=== PATIENT | female | born 1960 | race Caucasian/White ===

== ENCOUNTER 2021-06-08 06:15 | Observation (INO) ==
[2021-06-08] MEDS ORDERED: Ondansetron 4 MG/2 ML VIAL IVP ONE (09:10)
[2021-06-08] MEDS ORDERED: Ringers Solution, Lactated 1,000 ML IVC ONE ×2 (09:15→10:42)
[2021-06-08] MEDS ORDERED: Ketorolac 30 MG/ML VIAL IVP ONE (09:19)
[2021-06-08 10:00] LABS: Albumin 4.5 g/dL (3.5-5.7); Albumin/Globulin Ratio 1.7 (1.1-2.2); Basophils # 0.1 K/mcL (0.0-0.2); Basophils % 0.3 %; Bilirubin,Total 0.8 mg/dL (0.3-1.0); Calcium 10.6 mg/dL (8.6-10.3); Globulin 2.7 g/dL (2.4-3.5); Hematocrit 43.9 % (35.3-44.9); Hemoglobin 15.1 g/dL (11.5-15.4); Immature Granulocytes % 0.5 % (0-4); Lymphocytes # 1.4 K/mcL (0.6-4.6); Mean Corpuscular HGB Conc 34.4 g/dL (31.6-35.5); Mean Corpuscular Hemoglobin 29.6 pg (28.0-33.3); Mean Corpuscular Volume 86.1 fL (83.0-100.0); Mean Platelet Volume 10.4 fL (9.4-12.4); Monocytes % 6.7 %; Platelet Count 350 K/mcL (140-400); Potassium 3.3 mEq/L (3.5-5.1); Red Cell Distribution Width 13.2 % (11.5-14.5); Segmented Neutrophils % 83.5 %; Total Protein 7.2 g/dL (6.4-8.9); White Blood Count 15.5 K/mcL (4.3-11.1)
[2021-06-08] MEDS ORDERED: Potassium Effervescent 25 MEQ TABLET.EFF PO ONE (10:17)
[2021-06-08] MEDS ORDERED: Prochlorperazine 10 MG/2 ML VIAL IVP ONE (10:43)
[2021-06-08 10:50] LABS: Influenza A PCR Negative (Negative); Influenza B PCR Negative (Negative); Resp. Syncytial Virus PCR Negative (Negative); SARS-CoV-2 by PCR (In House) Negative (Negative)
[2021-06-08 11:19] LABS: Bilirubin,Urine Negative (Negative); Blood,Urine Small (Negative); Clarity,Urine Clear (Clear); Color,Urine Light-Yellow (Yellow); Glucose,Urine (UA) Normal (Normal); Ketones,Urine Negative (Negative); Leukocyte Esterase,Urine Negative (Negative); Mucus,Urine Few per lpf (None-Few); Nitrite,Urine Negative (Negative); PH,Urine 5.5 pH Units (5.0-8.0); Protein,Urine Negative (Neg-Trace); RBC,Urine 0-3 per hpf (0-3); Specific Gravity,Urine 1.017 (1.010-1.025); Squamous Epithelial Cell,Urine Few per hpf (None-Few); Urobilinogen,Urine Normal (Normal); WBC,Urine 0-3 per hpf (0-3)
[2021-06-08 14:25] LABS: Calcium 9.8 mg/dL (8.6-10.3); Potassium 3.7 mEq/L (3.5-5.1)
[2021-06-08] MEDS ORDERED: Naloxone 0.4 MG/ML INJ IVP PRN (16:46)
[2021-06-08] MEDS: cefTRIAXone 2,000 MG in 0.9 % Sodium Chloride 20 ML IVPB SCH (17:56)
[2021-06-08] MEDS: Azithromycin 500 MG in 0.9 % Sodium Chloride 250 ML IVPB SCH (17:56)
[2021-06-08] MEDS ORDERED: Acetaminophen 325 MG TABLET PO ONE (23:08)
[2021-06-09] MEDS ORDERED: Ibuprofen 600 MG TABLET PO ONE (03:24)
[2021-06-09 05:21] LABS: Basophils % 0.3 %; Eosinophils % 0.2 %; Hematocrit 36.2 % (35.3-44.9); Immature Granulocytes % 0.5 % (0-4); Lymphocytes # 1.6 K/mcL (0.6-4.6); Lymphocytes % 13.4 %; Mean Corpuscular Hemoglobin 29.6 pg (28.0-33.3); Mean Corpuscular Volume 87.2 fL (83.0-100.0); Mean Platelet Volume 10.4 fL (9.4-12.4); Monocytes # 0.8 K/mcL (0.0-1.3); Neutrophils # 9.5 K/mcL (1.6-8.9); Platelet Count 266 K/mcL (140-400); Red Blood Count 4.15 M/mcL (3.82-4.97); Red Cell Distribution Width 13.2 % (11.5-14.5); Segmented Neutrophils % 78.6 %; White Blood Count 12.1 K/mcL (4.3-11.1)
[2021-06-09 05:24] LABS: Hemoglobin 12.3 g/dL (11.5-15.4)
[2021-06-09] MEDS: *HR* Enoxaparin 40 MG/0.4 ML SYRINGE SQ SCH (05:29)
[2021-06-09 05:53] LABS: Calcium 9.2 mg/dL (8.6-10.3); Potassium 3.1 mEq/L (3.5-5.1)
[2021-06-09] MEDS: cefTRIAXone 2,000 MG in 0.9 % Sodium Chloride 20 ML IVPB SCH (07:23)
[2021-06-09] MEDS ORDERED: 0.9 % Sodium Chloride 1,000 ML IVC SCH (11:00)
[2021-06-09] MEDS ORDERED: Triamterene/HCTZ 75/50 mg TABLET PO SCH (12:00)
[2021-06-09] MEDS ORDERED: Metoprolol XL (24 HR) Succ 25 MG TAB.ER.24H PO SCH (12:00)
[2021-06-09] MEDS ORDERED: Ondansetron 4 MG/2 ML VIAL IVP PRN (15:08)
[2021-06-09] MEDS: Benzonatate 100 MG CAPSULE PO PRN (15:33)
[2021-06-09] MEDS: Azithromycin 500 MG in 0.9 % Sodium Chloride 250 ML IVPB SCH (17:02)
[2021-06-09] MEDS ORDERED: Acetaminophen 325 MG TABLET PO ONE (20:36)
[2021-06-10 01:39] LABS: Basophils # 0.1 K/mcL (0.0-0.2); Basophils % 0.5 %; Eosinophils # 0.1 K/mcL (0.0-0.6); Hematocrit 35.9 % (35.3-44.9); Hemoglobin 12.4 g/dL (11.5-15.4); Immature Granulocytes % 0.3 % (0-4); Lymphocytes # 2.3 K/mcL (0.6-4.6); Lymphocytes % 21.9 %; Mean Corpuscular HGB Conc 34.5 g/dL (31.6-35.5); Mean Corpuscular Hemoglobin 30.2 pg (28.0-33.3); Mean Corpuscular Volume 87.3 fL (83.0-100.0); Mean Platelet Volume 10.3 fL (9.4-12.4); Monocytes # 0.8 K/mcL (0.0-1.3); Monocytes % 7.9 %; Neutrophils # 7.1 K/mcL (1.6-8.9); Platelet Count 264 K/mcL (140-400); Red Blood Count 4.11 M/mcL (3.82-4.97); Segmented Neutrophils % 68.4 %; White Blood Count 10.3 K/mcL (4.3-11.1)
[2021-06-10 01:51] LABS: Calcium 9.6 mg/dL (8.6-10.3); Potassium 3.2 mEq/L (3.5-5.1)
[2021-06-10] MEDS ORDERED: Ibuprofen 600 MG TABLET PO ONE (04:43)
[2021-06-10] MEDS: *HR* Enoxaparin 40 MG/0.4 ML SYRINGE SQ SCH (04:50)
[2021-06-10] MEDS: Benzonatate 100 MG CAPSULE PO PRN (04:50)
[2021-06-10 07:56] VITALS: TEMP 98.3
[2021-06-10] MEDS: cefTRIAXone 2,000 MG in 0.9 % Sodium Chloride 20 ML IVPB SCH (09:34)
[2021-06-10 11:59] VITALS: BP 130/83; PULSE 75; O2SAT 95
== END 2021-06-10 13:09 | disposition home or self-care (01) ==
LOC: 3ANU 06:15 → EMEROOARM 06:15 → 3ANU 16:47
PROVIDERS: ADMIT Student in an Organized Health Care Education/Training Program; ATTEND Student in an Organized Health Care Education/Training Program